=== PATIENT | male | born 1980 | race Caucasian/White ===

== ENCOUNTER 2025-06-03 14:05 | Emergency (ER) | payer SELFPAY ==
[2025-06-03 14:06] VITALS: BP 143/94; PULSE 80; RESP 18; TEMP 36.9; O2SAT 100; BMI 30.4
--- NOTE | 2025-06-03 14:32 | EDS_ITS ---
HPI History of Present Illness Chief Complaint: Flank Pain Informant: patient Onset/Context/Timing Onset: Yesterday Context: Sudden Onset Timing: Intermittent Quality: Sharp Location: Right lower abdomen and right lower back Worsened by: Sitting up and moving Relieved by: Rest and laying flat Narrative Narrative: Patient presents with right lower abdominal pain that began yesterday. Patient states began rather suddenly. Patient states it comes and goes. Patient states it radiates into his right lower flank area. Patient states it is worse with sitting upright and with movement. Patient states it is better when he is able to rest and lie flat. Patient admits to some nausea with 1 episode of vomiting yesterday. Patient denies any diarrhea. Patient states he was seen at the [facility]. Patient states they did a urine there which showed microscopic hematuria. Patient denies any fevers but states when the pain becomes severe, he breaks out into a cold sweat. PFSH PFS Medical History no medical history no medical history Home Medications ?Medication ?Instructions ?Recorded ?Last Taken ?Type hydrocodone-acetaminophen 5-325mg 1 tab PO Q6H PRN PRN Pain 3 days 06/03/25 Unknown Rx 5mg-325mg #10 TABLETS Allergy/AdvReac Type Severity Reaction Status Date / Time No Known Allergies Allergy Verified 06/03/25 14:05 Surgical History Hx of wisdom tooth extraction Social History (Updated 06/03/25 @ 14:[address] Julio Cesar Herzog, DO) Smoking Status: Never smoker alcohol intake: current alcohol intake frequency: a few times a week substance use type: marijuana ROS ROS ED Constitutional Constitutional ED: Reports chills and sweats; Denies fever(s) Eyes Eyes: Denies blurry vision or change in vision ENT ENT ED: Denies rhinorrhea or sore throat Cardiovascular Cardiovascular: Denies chest pain or palpitations Respiratory/Chest Respiratory/Chest: Denies cough or dyspnea Gastrointestinal Gastrointestinal: Reports vomiting; Denies nausea Genitourinary Genitourinary ED: Reports hematuria; Denies dysuria Musculoskeletal Musculoskeletal: Reports back pain and neck pain Integumentary Denies abscess or rash Neurologic Neurologic: Denies headache(s) or weakness Allergic/Immunologic Allergic/Immunologic ED: Denies mouth swelling or urticaria EXAM Physical Exam Const Vital Signs: 06/03/25 14:06 Temperature 98.4 F Temperature Source Oral Pulse Rate 80 Respiratory Rate 18 Blood Pressure 143/94 H Blood Pressure Mean 110 Pulse Ox 100 Oxygen Delivery Method Room Air Positive well nourished and well developed Constitutional Narrative: BMI is 30.4. General Appearance ED: well developed and NAD HEENT Reports moist mucous membranes Neck supple and no JVD Resp normal respiratory effort and clear to auscultation bilaterally Cardio regular rate and regular rhythm GI non-distended Palpation: soft and tender RLQ; Negative for guarding or rebound tenderness present Back/Spine no CVA tenderness Neuro oriented x3, CN's II-XII intact bilaterally and no sensory deficits noted Sensorium / Orientation: alert Motor Exam: strength 5/5 throughout Psych mental status grossly normal MDM MDM MDM Narrative Medical decision making narrative: Differential diagnosis includes acute appendicitis, ureteral calculus, diverticulitis, urinary tract infection, pyelonephritis, dehydration, and electrolyte abnormality. CBC will be obtained to assess for leukocytosis and anemia. Basic metabolic profile will be obtained to assess for electrolyte abnormality and renal function. CT scan of the abdomen and pelvis will be obtained to assess for appendicitis, ureteral calculus, and diverticulitis. Lab Data Attestation: I reviewed the patient's lab results. Lab results narrative: CBC was reviewed and was within normal limits. Basic metabolic profile was reviewed and was within normal limits. Labs: Laboratory Results - last 24 hr 06/03/25 14:20 WBC 11.0 RBC 4.71 Hgb 14.5 Hct 42.0 MCV 89.2 MCH 30.8 MCHC 34.5 RDW Std Deviation 42.5 RDW Coeff of Dipesh 13.0 Plt Count 273 MPV 12.6 H Immature Gran % (Auto) 0.200 Neut % (Auto) 65.7 Lymph % (Auto) 24.8 [place] % (Auto) 8.3 Eos % (Auto) 0.5 Baso % (Auto) 0.5 Absolute Neuts (auto) 7.3 Absolute Lymphs (auto) 2.73 Nucleated RBC % 0 Sodium 141 Potassium 3.5 Chloride 105 Carbon Dioxide 23.3 Anion Gap 12 BUN 16 Creatinine 0.82 Estim Creat Clear Calc 128.35 Est GFR (MDRD) Non-Af 113 BUN/Creatinine Ratio 18.9 Glucose 109 H Calcium 9.3 Radiography Diagnostic Testing: Clinical Impression(s) from Imaging Studies Abdomen/Pelvis CT 06/03/25 14:39 IMPRESSION: Nonobstructive bilateral intrarenal calculi. Mild right hydronephrosis and right hydroureter. No ureteral calculus is seen at this time. This may represent a recently passed calculus. Reading Location: [id number] CT scan of the abdomen and pelvis was obtained. There are bilateral intrarenal calculi. There is mild right hydronephrosis and right hydroureter. There is no ureteral calculus noted. There is no evidence of appendicitis. This was interpreted by the radiologist and was also independently reviewed by myself. Treatment and Re-Evaluation :: Patient was given IV fluids, morphine, and Zofran. Patient declined the m orphine. Patient would prefer something less sedating. Patient was given injection of Toradol. Patient was advised of his findings. Patient was instructed to drink plenty of fluids. Patient was given a prescription for short course of [place] to take as needed for pain. Patient was instructed that he can take ibuprofen with this as well. Patient was instructed to follow-up with his primary care physician in 5 to 7 days. Patient was instructed to return if worse in any way. Patient understood and was agreeable with the plan. All questions were answered. Discharge Plan Triage Chief Complaint: Flank Pain ED Provider: Julio Cesar Herzog Dx/Rx/DC Orders Clinical Impression: Acute right flank pain, Elevated blood pressure reading Instructions: ED Flank Pain with Uncertain Cause Prescriptions: New hydrocodone-acetaminophen 5-325 mg tablet 1 tab PO Q6H PRN PRN (Reason: Pain) 3 Days Qty: 10 0RF Primary Care Provider: Care PhysicianRomana Primary Referrals: Care Phys[facility]Romana Primary [facility] - 5-7 Days Activity Restrictions/Additional Instructions: You were given a prescription for [place] for pain. You may take ibuprofen in addition to this if your pain is not controlled. If your pain becomes severe as not controlled with either pain medication please return to the emergency department. Print Language: Amharic Disposition Disposition: Home, Self Care
--- NOTE | 2025-06-03 14:39 | CT_ITS ---
PROCEDURE: ABDOMEN/PELVIS W IV CONT ONLY 06/03/2025 REASON FOR EXAM: ABDOMINAL PAIN 1 day history of right flank pain. TECHNIQUE: Procedure Code: [id number] Modality: CT Procedure: ABDOMEN/PELVIS W IV CONT ONLY Coronal and Sagittal reconstruction series were provided. CONTRAST: Isovue 300 VOLUME: 100 mL One or more dose reduction techniques were used (e.g., Automated exposure control, adjustment of the mA and/or kV according to patient size, use of iterative reconstruction technique. RADIATION DOSE SUMMARY: CTDlvol: 9.6 mGy DLP: 644.72 mGycm COMPARISON: None FINDINGS: Lung bases: Unremarkable Liver: Normal size. No mass. Gallbladder: No gallstones. Spleen: Normal size. Pancreas: Normal size without evidence of mass surrounding inflammation or ductal dilation. Adrenals: Unremarkable Kidneys: Punctate calculus in the midpole of the left kidney. 3 mm calculus in the mid to lower calyx of the left kidney. Punctate calculus in the lower pole of the left kidney. Minimal right hydronephrosis. Minimal right hydroureter. No obstructive calculus is seen at this time. This may represent a recently passed right ureteral calculus. Bladder: Mildly distended urinary bladder. Bowel: Unremarkable Appendix: Unremarkable Lymph nodes: Unremarkable. Vasculature: The abdominal aorta and IVC are normal. Peritoneum / Retroperitoneum: Unremarkable Bones: Mild degenerative changes. CT/Abdomen/Pelvis W IV Cont ONLY IMPRESSION: Nonobstructive bilateral intrarenal calculi. Mild right hydronephrosis and right hydroureter. No ureteral calculus is seen at this time. This may represent a recently passed calculus. Reading Location: [id number]
[2025-06-03 14:48] LABS: Hematocrit 42.0 % (40-54); Hemoglobin 14.5 g/dL (13.0-16.5); Immature Granulocytes Count 0.020 X10^3/uL (0.0-0.0); Mean Corp Hgb Conc 34.5 g/dL (32-36); Mean Corpuscular Volume 89.2 fL (80-94); Mean Platelet Vol. 12.6 fl (6.2-12.0); NRBC Flagged by Analyzer 0 % (0-5); Platelet Count 273 K/mm3 (150-450); RBC Distribution Width CV 13.0 % (11.6-14.6); RBC Distribution Width SD 42.5 fl (35.1-43.9); Red Blood Count 4.71 M/mm3 (4.6-6.2); White Blood Count 11.0 K/mm3 (4.4-11.0)
[2025-06-03] MEDS: 0.9% Normal Saline (1000mL) 1,000 ML 999 ML IV (14:48)
[2025-06-03 15:10] LABS: Anion Gap 12 (5-15); BUN 16 mg/dL (4-19); BUN/Creat Ratio 18.9 RATIO (10-20); Calcium,Total 9.3 mg/dL (7.6-11.0); Carbon Dioxide 23.3 mmol/L (21.0-32.0); Chloride 105 mmol/L (98-108); Estimated Creatinine Clearance 128.35 ml/min (50-250); Glucose 109 mg/dL (70-99); Potassium 3.5 mmol/L (3.3-5.1)
[2025-06-03 15:33] VITALS: BP 143/94; PULSE 80; RESP 18; TEMP 36.9; O2SAT 100
[2025-06-03] MEDS: Ketorolac 30 MG/ML Syringe IV (15:37)
== END 2025-06-03 15:40 | disposition home or self-care (01) ==
PROVIDERS: Emergency Provider Emergency Medicine; Visit Provider Emergency Medicine
DX: R10.31 Right lower quadrant pain (principal); R03.0 Elevated blood-pressure reading, without diagnosis of hypertension
CPT/HCPCS: 74177; 80048; 85025; 96361; 96374; 99283; Q9967; A4216; J2405